=== PATIENT | female | born 1960 | race African-American/Black ===

== ENCOUNTER 2023-09-14 17:50 | Observation (INO) | payer OTHER ==
[2023-09-14 17:56] VITALS: BMI 39.2
[2023-09-14] MEDS ORDERED: ACETAMINOPHEN 500 MG TABLET (FP) PO ONE (19:32)
[2023-09-14] MEDS ORDERED: ACETAMINOPHEN 1000 MG/100 ML BAG IVPB ONE (19:34)
[2023-09-14] MEDS ORDERED: ACETAMINOPHEN INJECTION 100 ML IVPB ONE (19:58)
[2023-09-14 20:23] LABS: HEMATOCRIT 40.6 % (32.4-45.2); HEMOGLOBIN 14.1 GM/dL (10.7-15.3); MCH 29.4 pg (25.7-33.7); MCHC 34.8 g/dl (32.0-36.0); MEAN CELL VOLUME 84.6 fl (80-96); MEAN PLT VOLUME 9.6 fl (7.5-11.1); PLATELET COUNT 152 10^3/uL (134-434); RDW 13.6 % (11.6-15.6); WHITE BLOOD COUNT 7.3 K/mm3 (4.0-10.0)
[2023-09-14 20:36] LABS: POTASSIUM 4.1 mmol/L (3.5-5.1)
[2023-09-14 20:38] LABS: CALCIUM 8.5 mg/dL (8.5-10.1)
[2023-09-14 20:39] LABS: ALBUMIN 3.6 g/dl (3.4-5.0)
[2023-09-14 20:42] LABS: CREATININE 0.9 mg/dL (0.55-1.3)
[2023-09-14 20:43] LABS: TOT PROT 7.4 g/dl (6.4-8.2)
[2023-09-14 20:44] LABS: BILIRUBIN,TOTAL 0.3 mg/dL (0.2-1)
[2023-09-15 04:49] LABS: URINE APPEARANCE CLEAR; URINE BILIRUBIN NEGATIVE (NEGATIVE); URINE COLOR YELLOW; URINE GLUCOSE (UA) NEGATIVE (NEGATIVE); URINE KETONE NEGATIVE (NEGATIVE); URINE LEUK ESTERASE NEGATIVE (NEGATIVE); URINE NITRITE NEGATIVE (NEGATIVE); URINE PROTEIN NEGATIVE (NEGATIVE); URINE UROBILINOGEN 0.2 mg/dL (0.2-1.0)
[2023-09-15 08:42] LABS: BASO % 0.9 % (0-2.0); EOS % 2.2 % (0-4.5); HEMATOCRIT 40.5 % (32.4-45.2); HEMOGLOBIN 13.6 GM/dL (10.7-15.3); LYMPH % 47.5 % (8-40); MCH 28.8 pg (25.7-33.7); MCHC 33.5 g/dl (32.0-36.0); MEAN CELL VOLUME 86.1 fl (80-96); MEAN PLT VOLUME 10.2 fl (7.5-11.1); MONO % 7.8 % (3.8-10.2); NEUT % 41.6 % (42.8-82.8); PLATELET COUNT 164 10^3/uL (134-434); RBC 4.71 M/mm3 (3.60-5.2); RDW 13.8 % (11.6-15.6); WHITE BLOOD COUNT 5.9 K/mm3 (4.0-10.0)
[2023-09-15 08:47] LABS: INR 0.97 (0.83-1.09); PROTHROMBIN TIME (PATIENT) 11.3 SEC (9.7-13.0)
[2023-09-15 08:50] LABS: ACTIVATED PTT 30.7 SECONDS (25.2-36.5)
[2023-09-15 09:16] LABS: POTASSIUM 4.2 mmol/L (3.5-5.1)
[2023-09-15 09:24] LABS: CALCIUM 8.3 mg/dL (8.5-10.1)
[2023-09-15 09:25] LABS: ALBUMIN 3.4 g/dl (3.4-5.0); BLOOD UREA NITROGEN 12.9 mg/dL (7-18); CHOLESTEROL 188 mg/dL (50-200)
[2023-09-15 09:26] LABS: LDL CHOLESTEROL (ONLY SJRH) 119 mg/dL (5-100)
[2023-09-15 09:28] LABS: CREATININE 0.8 mg/dL (0.55-1.3); HDL CHOLESTEROL 47 mg/dL (40-60); PHOSPHOROUS 4.2 mg/dL (2.5-4.9)
[2023-09-15 09:29] LABS: BILIRUBIN,TOTAL 0.8 mg/dL (0.2-1); TOT PROT 7.1 g/dl (6.4-8.2)
[2023-09-15] MEDS ORDERED: LABETALOL HCL 100 MG TABLET (FP) ONE ×2 (16:46→21:17)
[2023-09-15] MEDS: LABETALOL HCL 100 MG TABLET (FP) PO SCH ×2 (16:50→21:26)
[2023-09-15] MEDS ORDERED: ACETAMINOPHEN 325 MG TABLET (FP) ONE (18:53)
[2023-09-15] MEDS: ACETAMINOPHEN 325 MG TABLET (FP) PO PRN (18:59)
[2023-09-15] MEDS ORDERED: ATORVASTATIN CA 80 MG TABLET (FP) ONE (21:17)
[2023-09-15] MEDS ORDERED: ATORVASTATIN CA 80 MG TABLET (FP) PO SCH (22:00)
[2023-09-16] MEDS ORDERED: LABETALOL HCL 100 MG TABLET (FP) PO SCH (09:15)
[2023-09-16] MEDS: ACETAMINOPHEN 325 MG TABLET (FP) PO PRN (09:37)
[2023-09-16 10:53] LABS: BASO % 0.4 % (0-2.0); EOS % 1.6 % (0-4.5); HEMATOCRIT 37.3 % (32.4-45.2); HEMOGLOBIN 13.3 GM/dL (10.7-15.3); MCH 30.2 pg (25.7-33.7); MCHC 35.6 g/dl (32.0-36.0); MEAN CELL VOLUME 84.9 fl (80-96); MEAN PLT VOLUME 10.2 fl (7.5-11.1); MONO % 9.2 % (3.8-10.2); NEUT % 46.8 % (42.8-82.8); PLATELET COUNT 157 10^3/uL (134-434); RBC 4.39 M/mm3 (3.60-5.2); RDW 13.9 % (11.6-15.6); WHITE BLOOD COUNT 6.2 K/mm3 (4.0-10.0)
[2023-09-16 11:07] LABS: POTASSIUM 4.5 mmol/L (3.5-5.1)
[2023-09-16 11:13] LABS: CALCIUM 8.4 mg/dL (8.5-10.1)
[2023-09-16 11:14] LABS: ALBUMIN 3.2 g/dl (3.4-5.0); BLOOD UREA NITROGEN 17.5 mg/dL (7-18)
[2023-09-16 11:17] LABS: CREATININE 0.9 mg/dL (0.55-1.3)
[2023-09-16 11:19] LABS: BILIRUBIN,TOTAL 0.4 mg/dL (0.2-1); TOT PROT 6.9 g/dl (6.4-8.2)
[2023-09-16 17:10] VITALS: BP 109/69; PULSE 58; RESP 16; TEMP 98.1
== END 2023-09-16 17:22 | disposition home or self-care (01) ==
LOC: JER 17:50 → JERBED 21:01
PROVIDERS: ADMIT Internal Medicine; ATTEND Internal Medicine
PROC: 3E033NZ Introduction of Analgesics, Hypnotics, Sedatives into Peripheral Vein, Percutaneous Approach (ICD-10-PCS; principal; 2023-09-14)
DX: S06.5X0A Traumatic subdural hemorrhage without loss of consciousness, initial encounter (principal); W10.9XXA Fall (on) (from) unspecified stairs and steps, initial encounter; Y93.E2 Activity, laundry; Y92.008 Other place in unspecified non-institutional (private) residence as the place of occurrence of the external cause; R29.6 Repeated falls; I10 Essential (primary) hypertension
CPT/HCPCS: 0241U-QW; 36415; 70450-TC; 70486-TC; 70551-TC; 71046-TC-FY; 72125-TC; 73130-TC-LT-FY; 73130-TC-RT-FY; 73521-TC-FY; 73562-TC-LT-FY; 80053; 80061; 81003; 82607; 83036; 83735; 84100; 84439; 84443; 84484; 85025; 85027; 85610; 85730; 86780; 93005; 93010; 93306-TC; 96374; 99285-25; G0378